=== PATIENT | female | born 1940 | race African-American/Black ===

== ENCOUNTER 2020-03-09 11:20 | Inpatient (IN) | payer MEDICARE, OTHER ==
[~2020-03-09] VITALS: Ht 157.5 cm; Wt 54.6 kg
[2020-03-09] MEDS ORDERED: ACETAMINOPHEN 325MG TABLET PO STA (11:35)
[2020-03-09] MEDS ORDERED: CEFTRIAXONE 1 G PREMIX 50 ML IV ONE (11:45)
[2020-03-09] MEDS ORDERED: AZITHROMYCIN 500 MG in DEXT 5% WATER 250 ML IV ONE (11:45)
[2020-03-09] MEDS ORDERED: SODIUM CHLORIDE 0.9% 1000ML BAG (SEPSIS BOLUS) IV ONE (11:45)
[2020-03-09] MEDS ORDERED: DEXAMETHASONE 10 MG/ML VIAL IV ONE (11:45)
[2020-03-09] MEDS ORDERED: DEXAMETHASONE 10 MG/ML VIAL IV NR (14:30)
[2020-03-09 15:12] LABS: CHLORIDE 99 mEq/L (98-107)
[2020-03-09 15:19] LABS: HEMATOCRIT. 34.5 % (36.0-48.0); MEAN CORPUSCULAR HEMOGLOBIN 30.1 pg (28.0-32.0); MEAN CORPUSCULAR VOLUME 86.8 fL (81.0-99.0); MEAN PLATELET VOLUME 8.1 fl (7.4-10.4); PLATELET 264 x1000/uL (130-400); RED BLOOD CELL COUNT 3.98 mill/uL (4.2-5.4); RED CELL DISTRIBUTION WIDTH 15.2 % (11.6-14.6)
[2020-03-09 15:21] LABS: CREATINE KINASE 44 IU/L (26-192)
[2020-03-09 15:26] LABS: INR 1.2; PROTHROMBIN TIME 12.2 sec (9.6-11.0)
[2020-03-09 15:47] LABS: PLATELET ESTIMATE NORMAL
[2020-03-09 15:59] LABS: D-DIMER > 35.20 mg/L FEU (<0.50); FIBRINOGEN 885 mg/dL (200-400)
[2020-03-09] MEDS ORDERED: ASPIRIN 325MG EC TABLET PO NR (16:00)
[2020-03-09 17:51] LABS: CLARITY URINE CLEAR (CLEAR); COLOR URINE YELLOW (YELLOW); KETONES URINE 1+ (NEGATIVE); LEUKOCYTE ESTERASE URINE 3+ (NEGATIVE); NITRITE URINE NEGATIVE (NEGATIVE); OCCULT BLOOD URINE TRACE (NEGATIVE); PH URINE 5.5 (4.5-8.0); PROTEIN URINE 1+ (NEGATIVE); SPECIFIC GRAVITY URINE 1.011 (1.005-1.030)
[2020-03-09] MEDS ORDERED: DEXTROSE 50% WATER 50ML SYRINGE IV PRN (19:15)
[2020-03-09] MEDS ORDERED: CLONIDINE 0.1MG TABLET PO PRN (19:15)
[2020-03-09] MEDS ORDERED: ACETAMINOPHEN 650MG/20.3ML UDC GT PRN (19:15)
[2020-03-09] MEDS ORDERED: NA PHOS,M-B/NA PHOS,DI-BA ENEMA 118ML PR PRN (19:15)
[2020-03-09] MEDS ORDERED: MORPHINE SULFATE 2 MG/ML CPJ (NOT FOR IM USE) IV PRN (19:15)
[2020-03-09] MEDS ORDERED: DOCUSATE SODIUM 100MG CAPSULE PO PRN (19:15)
[2020-03-09] MEDS ORDERED: LORAZEPAM 0.5MG TABLET PO PRN (19:15)
[2020-03-09] MEDS ORDERED: DIPHENHYDRAMINE 50MG/ML VIAL IV PRN (19:15)
[2020-03-09] MEDS ORDERED: GUAIFENESIN 200MG/10ML SUGAR FREE UDC PO PRN (19:15)
[2020-03-09] MEDS ORDERED: ONDANSETRON HCL 4MG/2ML INJ IV PRN (19:15)
[2020-03-09] MEDS ORDERED: HYDROCODONE/ACETAMINOPHEN 5/325MG TABLET PO PRN (19:15)
[2020-03-09] MEDS ORDERED: MAGNESIUM/ALUMINUM HYDROXIDE/SIMETHICONE 30ML UDC PO PRN (19:15)
[2020-03-09] MEDS: INSULIN LISPRO 100 UNITS/ML SUBCUT SCH (21:00)
[2020-03-09] MEDS: ALBUTEROL 6.7GM HFA INHALER ORI SCH (21:00)
[2020-03-09] MEDS: BLOOD SUGAR DIAGNOSTIC STRIP TEST SCH (21:41)
[2020-03-09] MEDS: FAMOTIDINE 20MG/2ML VIAL IV SCH (22:28)
[2020-03-09] MEDS: ENOXAPARIN 60MG/0.6ML SYR SUBCUT SCH (22:29)
[2020-03-10 00:34] LABS: CREATINE KINASE MB FRACTION 3.3 ng/mL (0.5-3.6)
[2020-03-10] MEDS: ALBUTEROL 6.7GM HFA INHALER ORI SCH ×2 (03:00→15:00)
[2020-03-10] MEDS: BLOOD SUGAR DIAGNOSTIC STRIP TEST SCH ×4 (06:20→21:00)
[2020-03-10] MEDS: INSULIN LISPRO 100 UNITS/ML SUBCUT SCH ×4 (06:24→23:55)
[2020-03-10 06:39] LABS: CHLORIDE 103 mEq/L (98-107)
[2020-03-10 06:41] LABS: HEMATOCRIT. 37.7 % (36.0-48.0); HEMOGLOBIN. 12.9 g/dL (12.0-16.0); MEAN CORPUSCULAR HEMOGLOBIN 29.8 pg (28.0-32.0); MEAN PLATELET VOLUME 8.3 fl (7.4-10.4); PLATELET 311 x1000/uL (130-400); RED BLOOD CELL COUNT 4.34 mill/uL (4.2-5.4); RED CELL DISTRIBUTION WIDTH 15.2 % (11.6-14.6)
[2020-03-10 06:48] LABS: CREATINE KINASE MB FRACTION 3.2 ng/mL (0.5-3.6); LDL CHOLESTEROL 84 mg/dL (5-100)
[2020-03-10 06:49] LABS: HDL CHOLESTEROL 24 mg/dL (40-59)
[2020-03-10 06:51] LABS: T4 FREE 1.45 ng/dL (0.76-1.46)
[2020-03-10] MEDS: ENOXAPARIN 60MG/0.6ML SYR SUBCUT SCH ×2 (07:52→09:00)
[2020-03-10] MEDS ORDERED: CEFTRIAXONE 1 G PREMIX 50 ML IV SCH (09:00)
[2020-03-10] MEDS ORDERED: AZITHROMYCIN 500 MG in DEXT 5% WATER 250 ML IV SCH (09:00)
[2020-03-10] MEDS: DEXAMETHASONE 10 MG/ML VIAL IV SCH (09:41)
[2020-03-10] MEDS: FAMOTIDINE 20MG/2ML VIAL IV SCH (09:41)
[2020-03-10] MEDS: ASPIRIN 81MG EC TABLET PO SCH (09:42)
[2020-03-10 14:07] LABS: PLATELET ESTIMATE NORMAL
[2020-03-10] MEDS ORDERED: INSULIN LISPRO 100 UNITS/ML SUBCUT ONE (18:30)
[2020-03-11] MEDS: ENOXAPARIN 60MG/0.6ML SYR SUBCUT SCH ×3 (00:16→23:39)
[2020-03-11 02:30] VITALS: BP 154/57
[2020-03-11] MEDS: ACETAMINOPHEN 325MG TABLET PO PRN (02:30)
[2020-03-11 04:00] VITALS: BP 95/33
[2020-03-11] MEDS ORDERED: METF500T60 PO (05:49)
[2020-03-11] MEDS: BLOOD SUGAR DIAGNOSTIC STRIP TEST SCH ×4 (07:40→23:45)
[2020-03-11 08:00] VITALS: BP 116/47
[2020-03-11] MEDS: INSULIN LISPRO 100 UNITS/ML SUBCUT SCH ×6 (08:10→23:52)
[2020-03-11] MEDS ORDERED: AZITHROMYCIN 500 MG in DEXT 5% WATER 250 ML IV SCH (09:00)
[2020-03-11] MEDS: ASPIRIN 81MG EC TABLET PO SCH (09:27)
[2020-03-11] MEDS: DEXAMETHASONE 10 MG/ML VIAL IV SCH (09:27)
[2020-03-11] MEDS: FAMOTIDINE 20MG/2ML VIAL IV SCH (09:27)
[2020-03-11] MEDS: ALBUTEROL 6.7GM HFA INHALER ORI SCH ×2 (09:28→23:40)
[2020-03-11] MEDS: CEFTRIAXONE 1,000 MG in DEXTROSE 5% WATER 50 ML IV SCH (09:42)
[2020-03-11 12:00] VITALS: BP 148/57
[2020-03-11 15:11] LABS: BG BASE EXCESS -4.4 mmol/L (-2.0-2.0); BG CARBOXYHEMOGLOBIN 0.3 % (0.5-1.5); BG DEOXYHEMOGLOBIN 8.7 % (0.0-5.0); BG HCO3 ACT 18.1 mmol/L (22.0-26.0); BG METHEMOGLOBIN 0.3 % (0.0-1.5); BG OXYGEN SATURATION 91.2 % (92.0-98.5); BG OXYHEMOGLOBIN 90.7 % (94.0-97.0); BG SAMPLE SITE RIGHT BRACHIAL; BG TOTAL HEMOGLOBIN 11.8 g/dL (12.0-18.0); BG VENT MODE MASK - NRB
[2020-03-11 16:00] VITALS: BP 105/58
[2020-03-11 20:00] VITALS: BP 127/54
[2020-03-12] VITALS: BP 131/49
[2020-03-12 04:00] VITALS: BP 140/69
[2020-03-12] MEDS: BLOOD SUGAR DIAGNOSTIC STRIP TEST SCH ×4 (06:48→21:37)
[2020-03-12 06:59] LABS: CHLORIDE 107 mEq/L (98-107)
[2020-03-12 07:00] LABS: HEMATOCRIT. 32.9 % (36.0-48.0); HEMOGLOBIN. 11.2 g/dL (12.0-16.0); MEAN CORPUSCULAR HEMOGLOBIN 29.7 pg (28.0-32.0); MEAN CORPUSCULAR VOLUME 87.6 fL (81.0-99.0); MEAN PLATELET VOLUME 9.1 fl (7.4-10.4); PLATELET 336 x1000/uL (130-400); RED BLOOD CELL COUNT 3.76 mill/uL (4.2-5.4); RED CELL DISTRIBUTION WIDTH 15.3 % (11.6-14.6)
[2020-03-12 08:00] VITALS: BP 134/65
[2020-03-12] MEDS: ASPIRIN 81MG EC TABLET PO SCH (09:00)
[2020-03-12] MEDS ORDERED: LIDOCAINE HCL/PF 1% 2ML VIAL ONE (09:30)
[2020-03-12] MEDS: FAMOTIDINE 20MG/2ML VIAL IV SCH (09:34)
[2020-03-12] MEDS: DEXAMETHASONE 10 MG/ML VIAL IV SCH (09:34)
[2020-03-12] MEDS: AZITHROMYCIN 500 MG TABLET PO SCH (09:34)
[2020-03-12] MEDS: ENOXAPARIN 60MG/0.6ML SYR SUBCUT SCH ×2 (09:34→22:42)
[2020-03-12] MEDS: CEFTRIAXONE 1,000 MG in DEXTROSE 5% WATER 50 ML IV SCH (09:35)
[2020-03-12] MEDS: INSULIN LISPRO 100 UNITS/ML SUBCUT SCH ×7 (09:36→22:43)
[2020-03-12] MEDS: ALBUTEROL 6.7GM HFA INHALER ORI SCH ×4 (10:07→22:44)
[2020-03-12 12:00] VITALS: BP 157/72
[2020-03-12 12:42] LABS: BG BASE EXCESS -0.5 mmol/L (-2.0-2.0); BG CARBOXYHEMOGLOBIN 0.2 % (0.5-1.5); BG DEOXYHEMOGLOBIN 7.4 % (0.0-5.0); BG HCO3 ACT 21.8 mmol/L (22.0-26.0); BG METHEMOGLOBIN 0.1 % (0.0-1.5); BG OXYGEN SATURATION 92.6 % (92.0-98.5); BG OXYHEMOGLOBIN 92.3 % (94.0-97.0); BG PCO2 29.1 mmHg (35.0-45.0); BG PH 7.493 (7.350-7.450); BG PO2 62.5 mmHg (75.0-100.0); BG SAMPLE SITE RIGHT RADIAL; BG TOTAL HEMOGLOBIN 12.2 g/dL (12.0-18.0); BG VENT MODE MASK - NRB
[2020-03-12 14:10] LABS: PLATELET ESTIMATE NORMAL
[2020-03-12 16:00] VITALS: BP 122/43
[2020-03-12 20:00] VITALS: BP_SYST 125; BP_SYST 143; BP_DIAS 55; BP_DIAS 56
[2020-03-13] VITALS: BP 132/49
[2020-03-13 06:00] VITALS: BP 129/36
[2020-03-13] MEDS: INSULIN LISPRO 100 UNITS/ML SUBCUT SCH ×7 (06:59→23:13)
[2020-03-13] MEDS: BLOOD SUGAR DIAGNOSTIC STRIP TEST SCH ×4 (06:59→21:00)
[2020-03-13] MEDS: AZITHROMYCIN 500 MG TABLET PO SCH (08:37)
[2020-03-13] MEDS: DEXAMETHASONE 10 MG/ML VIAL IV SCH (08:37)
[2020-03-13] MEDS: ENOXAPARIN 60MG/0.6ML SYR SUBCUT SCH ×2 (08:37→23:11)
[2020-03-13] MEDS: CEFTRIAXONE 1,000 MG in DEXTROSE 5% WATER 50 ML IV SCH (08:42)
[2020-03-13] MEDS: FAMOTIDINE 20MG/2ML VIAL IV SCH (08:42)
[2020-03-13] MEDS: ALBUTEROL 6.7GM HFA INHALER ORI SCH ×3 (08:43→23:13)
[2020-03-13] MEDS: ASPIRIN 81MG EC TABLET PO SCH (09:33)
[2020-03-13 12:00] VITALS: BP 132/66
[2020-03-13 15:43] LABS: HEMATOCRIT. 33.5 % (36.0-48.0); HEMOGLOBIN. 11.4 g/dL (12.0-16.0); MEAN CORPUSCULAR VOLUME 87.6 fL (81.0-99.0); MEAN PLATELET VOLUME 8.6 fl (7.4-10.4); PLATELET 328 x1000/uL (130-400); RED BLOOD CELL COUNT 3.82 mill/uL (4.2-5.4); RED CELL DISTRIBUTION WIDTH 14.9 % (11.6-14.6)
[2020-03-13 15:53] LABS: CHLORIDE 106 mEq/L (98-107)
[2020-03-13 16:00] VITALS: BP 126/59
[2020-03-13 16:19] LABS: BG BASE EXCESS -1.8 mmol/L (-2.0-2.0); BG CARBOXYHEMOGLOBIN 0.3 % (0.5-1.5); BG DEOXYHEMOGLOBIN 11.7 % (0.0-5.0); BG FRACTION INSPIRED OXYGEN 100; BG HCO3 ACT 20.3 mmol/L (22.0-26.0); BG METHEMOGLOBIN 0.3 % (0.0-1.5); BG OXYGEN SATURATION 88.2 % (92.0-98.5); BG OXYHEMOGLOBIN 87.7 % (94.0-97.0); BG PCO2 26.8 mmHg (35.0-45.0); BG PH 7.498 (7.350-7.450); BG PO2 51.7 mmHg (75.0-100.0); BG SAMPLE SITE RIGHT RADIAL; BG TOTAL HEMOGLOBIN 11.5 g/dL (12.0-18.0); BG VENT MODE MASK - NRB
[2020-03-13 17:35] LABS: PLATELET ESTIMATE NORMAL
[2020-03-13 20:00] VITALS: BP 133/59
[2020-03-14 00:16] VITALS: BP 116/52
[2020-03-14] MEDS: ALBUTEROL 6.7GM HFA INHALER ORI SCH ×4 (03:50→21:22)
[2020-03-14 04:00] VITALS: BP 134/49
[2020-03-14 06:42] LABS: HEMATOCRIT. 35.7 % (36.0-48.0); HEMOGLOBIN. 12.3 g/dL (12.0-16.0); MEAN CORPUSCULAR HEMOGLOBIN 30.2 pg (28.0-32.0); MEAN CORPUSCULAR VOLUME 88.1 fL (81.0-99.0); MEAN PLATELET VOLUME 9.5 fl (7.4-10.4); PLATELET 369 x1000/uL (130-400); RED BLOOD CELL COUNT 4.06 mill/uL (4.2-5.4); RED CELL DISTRIBUTION WIDTH 15.4 % (11.6-14.6)
[2020-03-14 06:47] LABS: CHLORIDE 108 mEq/L (98-107)
[2020-03-14 08:00] VITALS: BP 153/58
[2020-03-14] MEDS: BLOOD SUGAR DIAGNOSTIC STRIP TEST SCH ×4 (08:03→21:05)
[2020-03-14 09:40] LABS: BG BASE EXCESS -0.9 mmol/L (-2.0-2.0); BG CARBOXYHEMOGLOBIN 0.3 % (0.5-1.5); BG DEOXYHEMOGLOBIN 14.5 % (0.0-5.0); BG FRACTION INSPIRED OXYGEN 100; BG HCO3 ACT 20.4 mmol/L (22.0-26.0); BG METHEMOGLOBIN 0.3 % (0.0-1.5); BG OXYGEN SATURATION 85.4 % (92.0-98.5); BG OXYHEMOGLOBIN 84.9 % (94.0-97.0); BG PCO2 25.1 mmHg (35.0-45.0); BG PH 7.528 (7.350-7.450); BG PO2 46.8 mmHg (75.0-100.0); BG SAMPLE SITE RIGHT RADIAL; BG TOTAL HEMOGLOBIN 12.4 g/dL (12.0-18.0); BG VENT MODE MASK - NRB
[2020-03-14] MEDS: DEXAMETHASONE 10 MG/ML VIAL IV SCH (10:11)
[2020-03-14] MEDS: AZITHROMYCIN 500 MG TABLET PO SCH (10:13)
[2020-03-14] MEDS: ASPIRIN 81MG EC TABLET PO SCH (10:13)
[2020-03-14] MEDS: FAMOTIDINE 20MG/2ML VIAL IV SCH (10:14)
[2020-03-14] MEDS: ENOXAPARIN 60MG/0.6ML SYR SUBCUT SCH ×2 (10:15→21:21)
[2020-03-14] MEDS: INSULIN LISPRO 100 UNITS/ML SUBCUT SCH ×7 (10:17→21:20)
[2020-03-14 12:00] VITALS: BP 130/65
[2020-03-14 16:00] VITALS: BP 125/78
[2020-03-14 20:00] VITALS: BP 107/53
[2020-03-14] MEDS: CARVEDILOL 3.125 MG TABLET PO SCH (20:38)
[2020-03-14 22:25] LABS: PLATELET ESTIMATE NORMAL
[2020-03-15] VITALS: BP 118/50
[2020-03-15] MEDS: ALBUTEROL 6.7GM HFA INHALER ORI SCH ×3 (03:10→15:08)
[2020-03-15 04:00] VITALS: BP 129/54
[2020-03-15] MEDS: BLOOD SUGAR DIAGNOSTIC STRIP TEST SCH ×4 (06:41→21:20)
[2020-03-15] MEDS: INSULIN LISPRO 100 UNITS/ML SUBCUT SCH ×7 (07:40→21:19)
[2020-03-15 07:55] LABS: HEMOGLOBIN. 11.5 g/dL (12.0-16.0); MEAN CORPUSCULAR HEMOGLOBIN 29.1 pg (28.0-32.0); MEAN CORPUSCULAR VOLUME 89.1 fL (81.0-99.0); MEAN PLATELET VOLUME 9.6 fl (7.4-10.4); PLATELET 384 x1000/uL (130-400); RED BLOOD CELL COUNT 3.93 mill/uL (4.2-5.4); RED CELL DISTRIBUTION WIDTH 15.4 % (11.6-14.6)
[2020-03-15 08:00] VITALS: BP 106/46
[2020-03-15 08:17] LABS: CHLORIDE 109 mEq/L (98-107)
[2020-03-15] MEDS: CARVEDILOL 3.125 MG TABLET PO SCH ×2 (09:00→21:17)
[2020-03-15] MEDS: FAMOTIDINE 20MG/2ML VIAL IV SCH (09:10)
[2020-03-15] MEDS: ENOXAPARIN 60MG/0.6ML SYR SUBCUT SCH ×2 (09:10→21:16)
[2020-03-15] MEDS: DEXAMETHASONE 10 MG/ML VIAL IV SCH (09:10)
[2020-03-15] MEDS: ASPIRIN 81MG EC TABLET PO SCH (09:10)
[2020-03-15] MEDS: AZITHROMYCIN 500 MG TABLET PO SCH (09:10)
[2020-03-15 12:00] VITALS: BP 141/57
[2020-03-15 17:47] LABS: PLATELET ESTIMATE NORMAL
[2020-03-15 18:50] LABS: BG BASE EXCESS 1.9 mmol/L (-2.0-2.0); BG CARBOXYHEMOGLOBIN 0.1 % (0.5-1.5); BG DEOXYHEMOGLOBIN 3.9 % (0.0-5.0); BG FRACTION INSPIRED OXYGEN 100; BG HCO3 ACT 24.9 mmol/L (22.0-26.0); BG METHEMOGLOBIN 0.2 % (0.0-1.5); BG OXYGEN SATURATION 96.1 % (92.0-98.5); BG OXYHEMOGLOBIN 95.8 % (94.0-97.0); BG PCO2 33.9 mmHg (35.0-45.0); BG PH 7.484 (7.350-7.450); BG PO2 82.9 mmHg (75.0-100.0); BG SAMPLE SITE LEFT RADIAL; BG TOTAL HEMOGLOBIN 12.8 g/dL (12.0-18.0); BG VENT MODE MASK - NRB
[2020-03-15 20:00] VITALS: BP 106/46
[2020-03-16] VITALS: BP 99/45
[2020-03-16 04:00] VITALS: BP 100/46
[2020-03-16] MEDS: ACETAMINOPHEN 325MG TABLET PO PRN (06:38)
[2020-03-16] MEDS: BLOOD SUGAR DIAGNOSTIC STRIP TEST SCH ×2 (07:31→12:16)
[2020-03-16] MEDS: INSULIN LISPRO 100 UNITS/ML SUBCUT SCH ×4 (07:40→12:26)
[2020-03-16 07:47] LABS: CHLORIDE 109 mEq/L (98-107)
[2020-03-16 08:00] VITALS: BP 107/55
[2020-03-16 08:01] LABS: HEMATOCRIT. 35.1 % (36.0-48.0); HEMOGLOBIN. 11.5 g/dL (12.0-16.0); MEAN CORPUSCULAR HEMOGLOBIN 29.2 pg (28.0-32.0); MEAN CORPUSCULAR VOLUME 89.3 fL (81.0-99.0); PLATELET 392 x1000/uL (130-400); RED BLOOD CELL COUNT 3.93 mill/uL (4.2-5.4); RED CELL DISTRIBUTION WIDTH 15.3 % (11.6-14.6)
[2020-03-16] MEDS: CARVEDILOL 3.125 MG TABLET PO SCH (09:00)
[2020-03-16] MEDS: DEXAMETHASONE 10 MG/ML VIAL IV SCH (09:26)
[2020-03-16] MEDS: FAMOTIDINE 20MG/2ML VIAL IV SCH (09:27)
[2020-03-16] MEDS: ASPIRIN 81MG EC TABLET PO SCH (09:27)
[2020-03-16] MEDS: ENOXAPARIN 60MG/0.6ML SYR SUBCUT SCH (09:27)
[2020-03-16] MEDS: AZITHROMYCIN 500 MG TABLET PO SCH (09:27)
[2020-03-16] MEDS: ALBUTEROL 6.7GM HFA INHALER ORI SCH ×2 (09:27→14:42)
[2020-03-16 12:00] VITALS: BP 121/57
[2020-03-16 14:30] VITALS: BP 121/57
[2020-03-16 18:09] LABS: PLATELET ESTIMATE NORMAL
== END 2020-03-16 17:00 | disposition hospice, home (50) | DRG 871 ==
LOC: ER 11:27 → MICUSO 17:23 → EDBEDREQ 17:26 → EDBEDREQSVC 17:26 → SUPCPDRO 18:41 → 7WST 03-10 23:09
PROVIDERS: ADMIT Internal Medicine; ATTEND Internal Medicine
PROC: 5A09357 Assistance with Respiratory Ventilation, Less than 24 Consecutive Hours, Continuous Positive Airway Pressure (ICD-10-PCS; principal; 2020-03-12)
DX: A41.89 Other specified sepsis (principal); U07.1 COVID-19; I21.4 Non-ST elevation (NSTEMI) myocardial infarction; J96.01 Acute respiratory failure with hypoxia; J12.89 Other viral pneumonia; D68.59 Other primary thrombophilia; E87.1 Hypo-osmolality and hyponatremia; N39.0 Urinary tract infection, site not specified; Z51.5 Encounter for palliative care; E11.65 Type 2 diabetes mellitus with hyperglycemia; E78.5 Hyperlipidemia, unspecified; F03.90 Unspecified dementia, unspecified severity, without behavioral disturbance, psychotic disturbance, mood disturbance, and anxiety; I10 Essential (primary) hypertension; D72.810 Lymphocytopenia; Z79.4 Long term (current) use of insulin; I95.9 Hypotension, unspecified; R74.01 Elevation of levels of liver transaminase levels
CPT/HCPCS: 36415; 36600; 71045; 80048; 80053; 80061; 81003; 82375; 82550; 82553; 82728; 82805; 82962; 83036; 83605; 83615; 83880; 84145; 84439; 84443; 84484; 85025; 85362; 85379; 85384; 86140; 87804; 93005; 93970; 96365; 96375; 99291; J0456; J0696; J1100; J1650; J1815; J3490; J7030; J7040; J7060; U0003; A4315